=== PATIENT | male | born 1995 | race Caucasian/White ===

== ENCOUNTER 2018-04-10 01:13 | Emergency (ER) | payer OTHER ==
[~2018-04-10] VITALS: Ht 175.3 cm; Wt 65.8 kg
[2018-04-10] MEDS ORDERED: HYDR-552 PO (01:39)
--- NOTE | 2018-04-10 01:49 | NUR ---
PT STATES HE WAS MOVING [place] 4 DAYS AGO, WHEN A FRIDGE FELL AND HIT HIS RIBS. PER CT, HE STATES HE WENT TO AN ER THAT DAY, AND XRAYS CAME BACK NORMAL. WAS PRECRIBED PAIN MEDS, BUT SAYS "THEY ARENT WORKING AND NEEDS MORE"
--- NOTE | 2018-04-10 01:54 | NUR ---
DR ZAC EDWARD MD AT BEDSIDE FOR MSE.
--- NOTE | 2018-04-10 02:01 | NUR ---
RADIOLOGY CALLED FOR XRAY
[2018-04-10] MEDS ORDERED: TRAMADOL HCL 50 MG TABLET PO ONE (03:30)
--- NOTE | 2018-04-10 03:40 | NUR ---
Patient discharged to home in stable conditon. Written and verbal after care instructions given. Patient verbalizes understanding of instructions. PT ambulated w/ steady gait. Denies pain at this time. PT took all personal belongings.
[2018-04-10 04:06] VITALS: BP 111/72
== END 2018-04-10 04:06 | disposition home or self-care (01) ==
LOC: ER 01:20
DX: S20.212A Contusion of left front wall of thorax, initial encounter (principal); Z79.891 Long term (current) use of opiate analgesic; W22.8XXA Striking against or struck by other objects, initial encounter; Y93.89 Activity, other specified; Y92.89 Other specified places as the place of occurrence of the external cause; Y99.8 Other external cause status
CPT/HCPCS: 71045; A4663

== ENCOUNTER 2018-05-02 23:07 | Emergency (ER) | payer OTHER ==
[~2018-05-02] VITALS: Ht 175.3 cm; Wt 65.8 kg
[~2018-05-02 23:07] MED LIST: HYDR-552 PO
--- NOTE | 2018-05-02 23:25 | NUR ---
PT AMBULATED TO ER WITH C/O LEFT RIB PAIN. PER PT, PT WAS DIAGNOSED WITH LEFT RIB FRACTURE AT [facility]. PT STATES HIS PAIN IS CURRENTLY 7/10. NO ACUTE DISTRESS NOTED. RESPIRATIONS EVEN + UNLABORED. AAOX4. Addendum: 05/02/18 at 2330 by TPADOLINA PT AMBULATED TO ER WITH C/O LEFT RIB PAIN. PER PT, PT WAS DIAGNOSED WITH LEFT RIB FRACTURE AT [facility] 1 WEEK AGO. PT STATES HIS PAIN IS CURRENTLY 7/10. NO ACUTE DISTRESS NOTED. RESPIRATIONS EVEN + UNLABORED. AAOX4.
--- NOTE | 2018-05-02 23:31 | NUR ---
Patient discharged to home in stable conditon. Written and verbal after care instructions given. Patient verbalizes understanding of instructions. All belongings with pt. VSS. No acute distress noted.
[2018-05-02 23:32] VITALS: BP 122/71
== END 2018-05-02 23:33 | disposition home or self-care (01) ==
LOC: ER 23:10
DX: R07.81 Pleurodynia (principal); Z79.891 Long term (current) use of opiate analgesic
CPT/HCPCS: A4663

== ENCOUNTER 2018-06-14 23:48 | Emergency (ER) | payer OTHER ==
[~2018-06-14] VITALS: Ht 175.3 cm; Wt 65.8 kg
--- NOTE | 2018-06-15 00:16 | NUR ---
MD LANGSTON AT BEDSIDE FOR MSE.
--- NOTE | 2018-06-15 00:27 | NUR ---
Patient discharged to home in stable conditon. Written and verbal after care instructions given. Patient verbalizes understanding of instructions. Patient able to ambulate unassisted with a steady gait. Patient left with all personal belongings.
[2018-06-15 00:29] VITALS: BP 119/78
== END 2018-06-15 00:27 | disposition home or self-care (01) ==
LOC: ER 23:50
DX: M54.9 Dorsalgia, unspecified (principal); F15.10 Other stimulant abuse, uncomplicated; Z79.891 Long term (current) use of opiate analgesic
CPT/HCPCS: 99281; A4663